=== PATIENT | female | born 1955 | race Caucasian/White ===

== ENCOUNTER 2018-04-21 15:27 | Emergency (ER) | payer BC, OTHER ==
[2018-04-21 16:01] LABS: BASOPHILS # (AUTO) 0.1 10^3/uL (0.0-0.1); BASOPHILS % (AUTO) 0.5 %; EOSINOPHILS % (AUTO) 0.2 %; HGB - HEMOGLOBIN 13.2 g/dL (12.0-16.0); LYMPHOCYTES # (AUTO) 1.1 10^3/uL (1.5-3.5); LYMPHOCYTES % (AUTO) 6.4 %; MEAN CORPUSCULAR HEMOGLOBIN 28.9 pg (27.0-31.0); MEAN CORPUSCULAR VOLUME 87.6 fL (81.0-99.0); MEAN PLATELET VOLUME 7.5 fL (7.9-10.8); MONOCYTES # (AUTO) 1.3 10^3/uL (0.0-1.0); MONOCYTES % (AUTO) 7.6 %; NEUTROPHILS # (AUTO) 14.5 10^3/uL (1.5-6.6); NEUTROPHILS % (AUTO) 85.3 %; PLT - PLATELET COUNT 320 10^3/uL (130-450); RED BLOOD COUNT 4.56 10^6/uL (4.20-5.40); RED CELL DISTRIBUTION WIDTH 13.4 % (12.0-15.0)
[2018-04-21 16:11] LABS: ALBUMIN 4.5 g/dL (3.2-5.5); ALBUMIN/GLOBULIN RATIO 1.6 (1.0-2.2); BILIRUBIN,TOTAL 0.7 mg/dL (0.2-1.0); CALCIUM 9.6 mg/dL (8.5-10.3); CREATININE 0.7 mg/dL (0.4-1.0); TOTAL PROTEIN 7.4 g/dL (6.7-8.2)
--- NOTE | 2018-04-21 16:25 | XRAY Report ---
Procedure Date: 04/21/2018 Accession Number: [id number] / [id number] Procedure: XR - Chest 2 View X-Ray CPT Code: 36632 FULL RESULT: EXAM: CHEST RADIOGRAPHY EXAM DATE: 04/21/2018 04:16 PM. CLINICAL HISTORY: Left breast chest pain, SOA. COMPARISON: None. TECHNIQUE: 2 views. FINDINGS: Lungs/Pleura: There is a small patchy airspace density within the inferior lingula. Right lung is clear. Negative for pleural effusion and pneumothorax. Mediastinum: Heart and mediastinal contours are unremarkable. Other: None. IMPRESSION: 1. Lingula airspace density suspicious for patchy pneumonia. RADIA
[2018-04-21] MEDS ORDERED: cefTRIAXone 1 GM in SODIUM CHLORIDE 0.9% MINIBAG 100 ML IV STA (16:30)
--- NOTE | 2018-04-21 16:45 | ED Physician Documentation ---
PD HPI CHEST PAIN - Stated complaint Stated Complaint: CP - Chief complaint Chief Complaint: Cardiac - History obtained from History obtained from: Patient, Family - History of Present Illness Timing - onset: Enter time (1300), Today Timing - onset during: Rest Timing - duration: Hours Timing - details: Abrupt onset, Still present Quality: Pressure, Pain Location: Left chest Radiation: Back Improved by: Rest Worsened by: Inspiration Associated symptoms: Feeling faint / dizzy, Cough. No: Shortness of air, Diaphoresis, Nausea Similar symptoms before: Has not had sx before Recently seen: Not recently seen - Additional information Additional information: 63-year-old female has had a cough for about 1 week she felt her symptoms were better and she went on 25 mile bike ride 2 days ago. She felt well yesterday but did not do much of any physical exertion and today at about 1:00 in the afternoon she developed some pain in the left chest. This is worse with inspiration and radiates to her back. She does remember that she was ill last year with cough and congestion for several weeks and required injection with Rocephin and a Z-Rusty and this was after a failed treatment with Augmentin. She subsequently developed C. difficile and was treated with metronidazole. Review of Systems Constitutional: reports: Myalgias, Fatigue. denies: Fever Eyes: denies: Decreased vision Ears: denies: Ear pain Nose: reports: Rhinorrhea / runny nose, Congestion Throat: reports: Sore throat Cardiac: reports: Chest pain / pressure. denies: Palpitations, Pedal edema, Calf pain Respiratory: reports: Cough, Wheezing. denies: Dyspnea GI: denies: Abdominal Pain, Abdominal Swelling, Nausea, Vomiting : denies: Dysuria, Frequency PD PAST MEDICAL HISTORY - Present Medications Home Medications: Ambulatory Orders Medication Instructions Recorded Confirmed Azithromycin [Zithromax] 250 mg PO DAILY #6 tablet 04/21/18 Sertraline [Zoloft] 50 mg PO DAILY 04/21/18 04/21/18 - Allergies Allergies/Adverse Reactions: Allergies Allergy/AdvReac Type Severity Reaction Status Date / Time No Known Drug Allergies Allergy Verified 04/21/18 15:39 PD ED PE NORMAL - Vitals Vital signs reviewed: Yes (normal ) - General General: Alert and oriented X 3, No acute distress, Well developed/nourished - HEENT HEENT: Atraumatic, PERRL, EOMI, Ears normal - Neck Neck: Supple, no meningeal sign, No bony TTP - Cardiac Cardiac: RRR, No murmur - Respiratory Respiratory: No respiratory distress, Other (light rhonchi in the left base.) - Abdomen Abdomen: Soft, Non tender - Back Back: No CVA TTP, No spinal TTP - Derm Derm: Normal color, Warm and dry, No rash - Extremities Extremities: No deformity, No edema - Neuro Neuro: Alert and oriented X 3, No motor deficit, No sensory deficit, Normal speech Eye Opening: Spontaneous Motor: Obeys Commands Verbal: Oriented GCS Score: 15 - Psych Psych: Normal mood, Normal affect Results - Vitals Vitals: Vital Signs - 24 hr 04/21/18 04/21/18 04/21/18 15:35 16:30 17:06 Temperature 36.7 C Heart Rate 92 76 86 Respiratory 18 18 26 H Rate Blood Pressure 117/56 L 109/53 L 110/59 L O2 Saturation 96 96 96 Oxygen O2 Source Room air - EKG (time done) 1534 Rate: Rate (enter#) (91) Rhythm: NSR Ischemia: Normal ST segments Compare to prior EKG: Old EKG unavailable Computer interpretation: Agree with computer - Labs Labs: Laboratory Tests 04/21/18 04/21/18 04/21/18 15:53 15:53 15:53 WBC 17.0 H RBC 4.56 Hgb 13.2 Hct 39.9 MCV 87.6 MCH 28.9 MCHC 33.0 RDW 13.4 Plt Count 320 MPV 7.5 L Neut # (Auto) 14.5 H Lymph # (Auto) 1.1 L [place] # (Auto) 1.3 H Eos # (Auto) 0.0 Baso # (Auto) 0.1 Absolute Nucleated RBC 0.00 Nucleated RBC % 0.0 Sodium 137 Potassium 3.7 Chloride 100 L Carbon Dioxide 29 Anion Gap 8.0 BUN 21 H Creatinine 0.7 Estimated GFR (MDRD) 85 L Glucose 124 H Calcium 9.6 Total Bilirubin 0.7 AST 22 ALT 25 Alkaline Phosphatase 74 Troponin I < 0.04 Total Protein 7.4 Albumin 4.5 Globulin 2.9 Albumin/Globulin Ratio 1.6 Lipase 34 - Rads (name of study) 2 view chest Radiology: Prelim report reviewed (Impression: 1. Lingular airspace density suspicious for patchy pneumonia.), EMP read indepedently, See rad report PD MEDICAL DECISION MAKING - ED course Complexity details: reviewed results, re-evaluated patient, considered differential, d/w patient, d/w family ED course: 63-year-old female in generally good health has developed a cough over the past week she over exerted herself and now has pneumonia in the left base. She has some chest pain associated with this she has a negative troponin and normal- appearing electrocardiogram. A chest x-ray demonstrates the presence of an infiltrate consistent with the rhonchi on exam. She is administered Rocephin 1 g IM and dexamethasone 10 mg orally and we will place her on some azithromycin. - Sepsis Event Vital Signs: Vital Signs - 24 hr 04/21/18 04/21/18 04/21/18 15:35 16:30 17:06 Temperature 36.7 C Heart Rate 92 76 86 Respiratory 18 18 26 H Rate Blood Pressure 117/56 L 109/53 L 110/59 L O2 Saturation 96 96 96 Oxygen O2 Source Room air Departure - Departure Disposition: 01 Home, Self Care Clinical Impression: Pneumonia Qualifiers: Pneumonia type: due to unspecified organism Laterality: left Lung location: lower lobe of lung Qualified Code(s): J18.1 - Lobar pneumonia, unspecified organism Condition: Stable Instructions: ED Pneumonia Adult Follow-Up: Beba Wilson DO [Primary Care Provider] - Prescriptions: Azithromycin [Zithromax] 250 mg PO DAILY #6 tablet
[2018-04-21] MEDS ORDERED: DEXAMETHASONE 10 MG/ML VIAL PO STA (16:48)
[2018-04-21 17:07] VITALS: BP 110/59
[2018-04-21] MEDS ORDERED: CHERRY SYRUP 10 ML UDC PO ONE (17:14)
[2018-04-21 18:30] LABS: PLATELET ESTIMATE, MANUAL NORMAL (130-450,000) (NORMAL); PLATELET MORPHOLOGY NORMAL APPEARANCE (NORMAL); RBC MORPHOLOGY (MULTIPLE) NORMAL APPEARANCE (NORMAL)
[2018-04-21 18:31] LABS: DIFFERENTIAL COMMENT MANUAL=AUTO DIFF
== END 2018-04-21 17:21 | disposition home or self-care (01) ==
LOC: ED 15:27
DX: J18.9 Pneumonia, unspecified organism (principal)
CPT/HCPCS: 36415; 71046; 80053; 83690; 84484; 85025; 93005; 96374; 99283; 99284; A9270

== ENCOUNTER 2020-06-12 08:00 | Outpatient (CLI) | payer BC, OTHER | END 2020-06-12 23:59 | disposition home or self-care (01) | LOC: LAB.R 08:00 | DX: R19.7 Diarrhea, unspecified (principal) | CPT/HCPCS: 81599; 87045; 87046; 87177; 87209; 87427; 87493 ==